=== PATIENT | male | born 2000 | race Caucasian/White ===

== ENCOUNTER 2024-05-28 01:05 | Emergency (ER) | payer BC ==
[~2024-05-28] VITALS: Ht 180.3 cm; Wt 68.0 kg
[2024-05-28] MEDS ORDERED: CHLORDIAZEPOXIDE HCL 25 MG CAPSULE ONE (02:10)
[2024-05-28] MEDS: IV NS 0.9% 1,000 ML BAG IV ONE (02:11)
[2024-05-28] MEDS: CHLORDIAZEPOXIDE HCL 25 MG CAPSULE PO ONE (02:11)
[2024-05-28] MEDS ORDERED: CHLO25CA22 PO (02:45)
[2024-05-28 03:40] VITALS: BP 120/66; TEMP 98.2; O2SAT 99
== END 2024-05-28 03:41 | disposition home or self-care (01) ==
LOC: ER 01:08
DX: F10.139 Alcohol abuse with withdrawal, unspecified (principal); R42 Dizziness and giddiness; R11.0 Nausea; Z88.0 Allergy status to penicillin; Y90.9 Presence of alcohol in blood, level not specified
CPT/HCPCS: 99283; 96360; J7030